=== PATIENT | male | born 1955 | race Caucasian/White ===

== ENCOUNTER 2018-04-16 07:27 | Day surgery (SDC) | payer BC ==
[~2018-04-16] VITALS: Ht 177.8 cm; Wt 102.3 kg
[2018-04-16] MEDS ORDERED: FLOMAX (08:30)
[2018-04-16] MEDS ORDERED: METFORMIN (08:30)
[2018-04-16] MEDS ORDERED: METOPROLOL (08:30)
[2018-04-16] MEDS ORDERED: LISINOPRIL (08:30)
[2018-04-16] MEDS ORDERED: ATORVASTATIN (08:30)
[2018-04-16 08:32] VITALS: Ht 177.8 cm; Wt 102.3 kg
[2018-04-16 09:11] VITALS: BP 177/90; PULSE 65; RESP 18
[2018-04-16] MEDS ORDERED: PROPOFOL 40 ML ONE (09:12)
--- NOTE | 2018-04-16 09:21 | PREAC ---
Date/Time of Note Date/Time of Note DATE: 04/16/18 TIME: 09:17 Anesthesia Eval and Record Evaluation Time Pre-Procedure Interview DATE: 04/16/18 TIME: 09:17 Age 62 Sex male NPO: 8 hrs Preoperative diagnosis scrreening colon Planned procedure colonoscopy egd Past Medical History Past Medical History: Includes Cardio: HTN Endo: Diabetes GI: Obesity Surgery & Anesthesia Issues No known issue Meds Anticoagulation: No Beta Jo Ann within 24 hr: No Reason Beta Jo Ann not given: Pt. not on B-Jo Ann Reported Medications [Flomax] No Conflict Check 04/16/18 [Metformin ] No Conflict Check 04/16/18 [Atorvastatin ] No Conflict Check 04/16/18 [Lisinopril] No Conflict Check 04/16/18 [Metoprolol] No Conflict Check 04/16/18 Meds reviewed: Yes Allergies Coded Allergies: No Known Allergy (Unverified , 04/16/18) Allergies Reviewed: Yes Labs/Studies Labs Reviewed: Reviewed by anesthesiologist test: N/A Studies: ECG (na) Pre-procedure Exam Last vitals Vital Signs Date Temp Pulse Resp B/P (MAP) Pulse Ox O2 O2 Flow FiO2 Time Delivery Rate 04/16/18 98.2 65 18 177/90 99 Room Air 09:11 (119) Airway: Adequate mouth opening Mallampati: Mallampati I Teeth: Normal Lung: Normal Heart: Normal ASA Physical Status ASA physical status: 3 Emergency: None Planned Anesthetic General/MAC: MAC Pre-operative Attestations Prior to commencing anesthesia and surgery, the patient was re-evaluated, there was verification of: *The patient's identity *The results of appropriate recent lab work and preoperative vital signs *The above evaluation not changing prior to induction *Anesthetic plan, risk benefits, alternative and complications discussed with patient/family; questions answered; patient/family understands, accepts and wishes to proceed. Legal Aid used LAURA ALVAREZ MD Apr 16, 2018 09:20
--- NOTE | 2018-04-16 10:13 | PAC ---
Date/Time of Note Date/Time of Note DATE: 04/16/18 TIME: 10:12 Post-Anesthesia Notes Post-Anesthesia Note Last documented vital signs Vital Signs Date Temp Pulse Resp B/P (MAP) Pulse Ox O2 O2 Flow FiO2 Time Delivery Rate 04/16/18 98.2 65 18 177/90 99 Room Air 09:11 (119) Activity: WNL Respiratory function: WNL Cardiovascular function: WNL Mental status: Baseline Pain reasonably controlled: Yes Hydration appropriate: Yes Nausea/Vomiting absent: Yes LAURA ALVAREZ MD Apr 16, 2018 10:13
[2018-04-16 10:35] VITALS: BP 146/84; PULSE 56; RESP 12
== END 2018-04-16 14:30 | disposition home or self-care (01) ==
LOC: GIL 07:27
PROVIDERS: ATTEND Internal Medicine Gastroenterology
DX: Z12.11 Encounter for screening for malignant neoplasm of colon (principal); D12.2 Benign neoplasm of ascending colon; D12.0 Benign neoplasm of cecum; D12.5 Benign neoplasm of sigmoid colon; I10 Essential (primary) hypertension; E11.9 Type 2 diabetes mellitus without complications
CPT/HCPCS: 45380; 82962; Z7610; 88305